=== PATIENT | female | born 1930 | race Caucasian/White ===

== ENCOUNTER 2016-09-23 11:38 | Emergency (ER) | payer MEDICARE, OTHER ==
[~2016-09-23] VITALS: Ht 165.1 cm; Wt 64.4 kg
[2016-09-23] MEDS ORDERED: SODIUM CHLORIDE 0.9% 1,000 ML IV ONE (12:41)
[2016-09-23] MEDS ORDERED: PLEASE ENTER ALLERGIES MC SCH ×2 (13:00)
[2016-09-23] MEDS ORDERED: SODIUM CHLORIDE FLUSH 10ML SYR IVF ONE (13:00)
[2016-09-23] MEDS ORDERED: ASPIRIN 81 MG TABLET CHEW PO ONE (13:00)
[2016-09-23 13:16] LABS: BLOOD UREA NITROGEN 20 mg/dL (7-18)
[2016-09-23 13:21] LABS: IS PT STATUS REG ER OR PRE ER? YES
[2016-09-23] MEDS ORDERED: ASPIRIN 81 MG TABLET CHEW ONE (15:19)
[2016-09-23 15:55] VITALS: BP 148/60
== END 2016-09-23 16:13 | disposition home or self-care (01) ==
LOC: ED 14:40
DX: R45.1 Restlessness and agitation (principal); F03.90 Unspecified dementia, unspecified severity, without behavioral disturbance, psychotic disturbance, mood disturbance, and anxiety
CPT/HCPCS: 36415; 71010; 80048; 81003; 82040; 84484; 85025; 93005; 96360; 99285; J7030

== ENCOUNTER 2016-10-14 15:54 | Emergency (ER) | payer OTHER ==
[~2016-10-14] VITALS: Ht 165.1 cm; Wt 64.6 kg
[2016-10-14 16:13] VITALS: BP 156/74
[2016-10-14] MEDS ORDERED: AMOXICILLIN/CLAV 875-125MG TABLET PO ONE (17:00)
== END 2016-10-14 17:25 | disposition home or self-care (01) ==
LOC: ED 17:19
DX: S81.851D Open bite, right lower leg, subsequent encounter (principal); W54.0XXD Bitten by dog, subsequent encounter; K21.9 Gastro-esophageal reflux disease without esophagitis; I10 Essential (primary) hypertension
CPT/HCPCS: 99283

== ENCOUNTER → 2016-10-24 | Outpatient (CLI) | payer OTHER | END | disposition home or self-care (01) | LOC: WOUND 13:12 | PROVIDERS: ATTEND Physician Assistant | DX: S81.851A Open bite, right lower leg, initial encounter (principal); K21.9 Gastro-esophageal reflux disease without esophagitis; E78.5 Hyperlipidemia, unspecified; E03.9 Hypothyroidism, unspecified; F03.90 Unspecified dementia, unspecified severity, without behavioral disturbance, psychotic disturbance, mood disturbance, and anxiety; Z86.73 Personal history of transient ischemic attack (TIA), and cerebral infarction without residual deficits; Z90.710 Acquired absence of both cervix and uterus; Y99.8 Other external cause status; Y92.89 Other specified places as the place of occurrence of the external cause; Y93.89 Activity, other specified; W54.0XXA Bitten by dog, initial encounter | CPT/HCPCS: 11042 ==

== ENCOUNTER → 2016-10-31 | Outpatient (CLI) | payer OTHER | END | disposition home or self-care (01) | LOC: WOUND 10:18 | PROVIDERS: ATTEND Physician Assistant | DX: S81.811D Laceration without foreign body, right lower leg, subsequent encounter (principal); I10 Essential (primary) hypertension; E03.9 Hypothyroidism, unspecified; E78.5 Hyperlipidemia, unspecified; F02.80 Dementia in other diseases classified elsewhere, unspecified severity, without behavioral disturbance, psychotic disturbance, mood disturbance, and anxiety; Z86.73 Personal history of transient ischemic attack (TIA), and cerebral infarction without residual deficits; K21.9 Gastro-esophageal reflux disease without esophagitis; Z90.710 Acquired absence of both cervix and uterus; W54.0XXD Bitten by dog, subsequent encounter; Y92.89 Other specified places as the place of occurrence of the external cause; Y99.8 Other external cause status | CPT/HCPCS: 97597 ==

== ENCOUNTER → 2016-11-07 | Outpatient (CLI) | payer OTHER | END | disposition home or self-care (01) | LOC: WOUND 10:20 | PROVIDERS: ATTEND Physician Assistant | DX: S81.811D Laceration without foreign body, right lower leg, subsequent encounter (principal); F02.80 Dementia in other diseases classified elsewhere, unspecified severity, without behavioral disturbance, psychotic disturbance, mood disturbance, and anxiety; E03.9 Hypothyroidism, unspecified; K21.9 Gastro-esophageal reflux disease without esophagitis; I10 Essential (primary) hypertension; Z90.710 Acquired absence of both cervix and uterus; E78.5 Hyperlipidemia, unspecified; Z86.73 Personal history of transient ischemic attack (TIA), and cerebral infarction without residual deficits; W54.0XXD Bitten by dog, subsequent encounter; Y92.89 Other specified places as the place of occurrence of the external cause; Y99.8 Other external cause status | CPT/HCPCS: G0463; WOU0463 ==

== ENCOUNTER 2018-07-29 10:36 | Observation (INO) | payer OTHER ==
[~2018-07-29] VITALS: Ht 165.1 cm; Wt 58.1 kg
--- NOTE | 2018-07-29 10:37 | NUR ---
PATIENT ARRIVES FROM HOME WIHT COMPLAINTS OF FAILURE TO THRIVE SINCE SHE WAS D/C FROM HOSPITAL RECENTLY. 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 PATIENT ARRIVES WITH [facility] REPORT, AND SHE IS NOT GOOD AT DETAILING HER HISTORY. APPRENTLY SHE TAKES KEFLEX FREQUENTLY FOR FREQUENT UTI.
[2018-07-29] MEDS ORDERED: SODIUM CHLORIDE FLUSH 10ML SYR IVF ONE (11:00)
--- NOTE | 2018-07-29 11:05 | NUR ---
PATIENTS SON FAN HERE SHEDDING LIGHT ON SITUATION. HE STATES SHE FELL OOB LAST THURSDAY AND WAS TAKEN TO [facility] ON THURSDAY - AND THEY D/C HER ON SOFT TISSUE INJURY. BUT BACK PAIN LOWER HAS BEEN INCREASINGLY WORSE EVER SINCE TO EXTENT SHE CAN BARELY WALK NOW ACCORDING TO SON. SON CAN'T GET HER OOB AND SHE ISN'T EATING, WHICH IS CONCERNING.
[2018-07-29 11:20] LABS: BASOPHILS # (AUTO) 0.02 x10^3/uL (0-0.1); BASOPHILS % (AUTO) 0 % (0-1); EOSINOPHILS # (AUTO) 0.06 x10^3/uL (0-0.4); EOSINOPHILS % (AUTO) 1 % (1-7); LYMPHOCYTES # (AUTO) 1.14 x10^3/uL (1-3.4); LYMPHOCYTES % (AUTO) 13 % (22-44); MD NO; MEAN CORPUSCULAR HEMOGLOBIN 28.9 pg (27.0-34.8); MEAN CORPUSCULAR HGB CONC 33.2 g/dL (32.4-35.8); MEAN CORPUSCULAR VOLUME 87.2 fL (80-100); MEAN PLATELET VOLUME 8.7 fL (7.4-10.4); MONOCYTES # (AUTO) 0.69 x10^3/uL (0.2-0.8); MONOCYTES % (AUTO) 8 % (2-9); NEUTROPHILS # (AUTO) 6.59 x10^3/uL (1.8-6.8); NEUTROPHILS % (AUTO) 78 % (42-75); PLATELET COUNT 428 x10^3/uL (130-400); RED BLOOD COUNT 4.64 x10^6/uL (3.82-5.3); RED CELL DISTRIBUTION WIDTH 14.6 % (9.6-15.2)
[2018-07-29 11:31] LABS: ALANINE AMINOTRANSFERASE 24 U/L (12-78); ALBUMIN 3.3 g/dL (3.4-5.0); ANION GAP 13 mmol/L (5-15); CALCIUM 9.2 mg/dL (8.5-10.1); CHLORIDE 102 mmol/L (98-107); CREATININE 0.76 mg/dL (0.55-1.02)
[2018-07-29 11:35] LABS: ALKALINE PHOSPHATASE 139 U/L (45-117); BILIRUBIN,TOTAL 0.6 mg/dL (0.2-1.0); TOTAL PROTEIN 7.1 g/dL (6.4-8.2); TROPONIN I < 0.015 ng/mL (0.000-0.045)
--- NOTE | 2018-07-29 11:38 | NUR ---
STRAIGHT CATH'D PATIENT AND GOT 15 ML DARK YELLOW URINE OUT. LABELED AND SENT TO LAB THE SMALL AMOUNT OBTAINED.
[2018-07-29 12:19] LABS: CULTURE INDICATED? YES; MICROSCOPIC INDICATED
--- NOTE | 2018-07-29 12:45 | NUR ---
PATIENT AWAITING ER WORKUP
--- NOTE | 2018-07-29 13:25 | NUR ---
PATIENT HAS ADMISSION ORDERS. SOCIAL SERIVCES MEETING WITH SON NOW. HE HAS STUGGLES CARING FOR HER. PATIENT IS IN RADIOLOGY FOR STUDIES.
--- NOTE | 2018-07-29 13:45 | NUR ---
REPORT GIVEN TO BECCA. KATERINA CHUNG
[2018-07-29 14:01] LABS: FREE T4 (FREE THYROXINE) 1.64 ng/dL (0.76-1.46); THYROID STIMULATING HORMONE 2.42 mIU/L (0.358-3.740)
[2018-07-29 14:11] VITALS: BP 148/69
[2018-07-29] MEDS ORDERED: POTASSIUM CHLORIDE 20 MEQ TAB.ER.PRT PO ONE (14:30)
[2018-07-29] MEDS ORDERED: OMEP40CA6 PO (14:50)
[2018-07-29] MEDS ORDERED: LISI5TAB7 PO (14:52)
[2018-07-29] MEDS ORDERED: SERT100T32 PO (14:52)
[2018-07-29] MEDS ORDERED: CEPH-375 PO (14:52)
[2018-07-29] MEDS ORDERED: LEVO100T5 PO (14:52)
[2018-07-29] MEDS ORDERED: GABAPENTIN 300 MG CAPSULE PO PRN (15:00)
[2018-07-29] MEDS ORDERED: ONDANSETRON 2MG/ML, 2ML IVPush PRN (15:00)
[2018-07-29] MEDS ORDERED: ENALAPRILAT 1.25 MG/ML, 2ML IVPush PRN (15:00)
[2018-07-29] MEDS ORDERED: MORPHINE SULFATE 4 MG/ML, 1ML IVPush PRN (15:00)
[2018-07-29] MEDS ORDERED: DOCUSATE 100 MG CAPSULE PO PRN (15:00)
[2018-07-29] MEDS ORDERED: ACETAMINOPHEN 325 MG TABLET PO PRN (15:00)
[2018-07-29] MEDS: METHOCARBAMOL 500 MG TABLET PO SCH ×2 (15:46→21:00)
[2018-07-29] MEDS: KETOROLAC 30 MG/1 ML IVPush SCH ×2 (16:02→22:24)
[2018-07-29] MEDS: NS + 20MEQ KCL 1,000 ML IV SCH (17:11)
[2018-07-29] MEDS: CEPHALEXIN 250 MG CAPSULE PO SCH (21:00)
[2018-07-29] MEDS: SERTRALINE 100MG TABLET PO SCH (21:00)
[2018-07-29] MEDS: ENOXAPARIN 40 MG/0.4 ML SQ SCH (22:24)
[2018-07-29] MEDS: LIDODERM 5% PATCH TD SCH (22:24)
[2018-07-30 00:06] VITALS: BP 132/71
[2018-07-30] MEDS: NS + 20MEQ KCL 1,000 ML IV SCH ×3 (04:20→20:55)
[2018-07-30] MEDS: KETOROLAC 30 MG/1 ML IVPush SCH (04:20)
[2018-07-30] MEDS: METHOCARBAMOL 500 MG TABLET PO SCH ×4 (05:30→20:55)
[2018-07-30 05:43] LABS: BASOPHILS # (AUTO) 0.02 x10^3/uL (0-0.1); BASOPHILS % (AUTO) 0 % (0-1); EOSINOPHILS # (AUTO) 0.08 x10^3/uL (0-0.4); EOSINOPHILS % (AUTO) 1 % (1-7); LYMPHOCYTES # (AUTO) 1.19 x10^3/uL (1-3.4); LYMPHOCYTES % (AUTO) 18 % (22-44); MD NO; MEAN CORPUSCULAR HEMOGLOBIN 29.6 pg (27.0-34.8); MEAN CORPUSCULAR HGB CONC 33.5 g/dL (32.4-35.8); MEAN CORPUSCULAR VOLUME 88.5 fL (80-100); MEAN PLATELET VOLUME 9.1 fL (7.4-10.4); MONOCYTES # (AUTO) 0.56 x10^3/uL (0.2-0.8); MONOCYTES % (AUTO) 8 % (2-9); NEUTROPHILS # (AUTO) 4.85 x10^3/uL (1.8-6.8); NEUTROPHILS % (AUTO) 72 % (42-75); PLATELET COUNT 419 x10^3/uL (130-400); RED BLOOD COUNT 4.35 x10^6/uL (3.82-5.3); RED CELL DISTRIBUTION WIDTH 14.2 % (9.6-15.2)
[2018-07-30 05:45] LABS: CHLORIDE 108 mmol/L (98-107)
[2018-07-30 05:50] LABS: ALANINE AMINOTRANSFERASE 28 U/L (12-78); ALKALINE PHOSPHATASE 131 U/L (45-117); ANION GAP 11 mmol/L (5-15); BILIRUBIN,TOTAL 0.8 mg/dL (0.2-1.0); CALCIUM 8.2 mg/dL (8.5-10.1); CREATININE 0.54 mg/dL (0.55-1.02); TOTAL PROTEIN 6.5 g/dL (6.4-8.2)
[2018-07-30] MEDS ORDERED: LEVOTHYROXINE 100 MCG TABLET PO SCH (06:00)
[2018-07-30] MEDS ORDERED: PANTOPRAZOLE 40 MG IV IVPush SCH (07:30)
[2018-07-30] MEDS: LEVOTHYROXINE 100 MCG INJ IVPush SCH (08:11)
[2018-07-30] MEDS: LISINOPRIL 5 MG TABLET PO SCH (08:11)
[2018-07-30 08:22] VITALS: BP 128/69
--- NOTE | 2018-07-30 10:05 | NUR ---
REC: Chopped diet with thin liquids; aspiration precautions Addendum: 07/30/18 at 1007 by Cesilia MANZO Amended: Links added.
[2018-07-30] MEDS ORDERED: POTASSIUM CHLORIDE 20 MEQ TAB.ER.PRT PO ONE (13:00)
[2018-07-30 14:14] VITALS: BP 155/67
[2018-07-30] MEDS ORDERED: ERGOCALCIFEROL 50,000 UNIT CAPSULE PO SCH (15:30)
[2018-07-30 19:36] VITALS: BP 159/67
[2018-07-30] MEDS: SERTRALINE 100MG TABLET PO SCH (20:55)
[2018-07-30] MEDS: ENOXAPARIN 40 MG/0.4 ML SQ SCH (20:55)
[2018-07-30] MEDS: LIDODERM 5% PATCH TD SCH (20:55)
[2018-07-30] MEDS: CEPHALEXIN 250 MG CAPSULE PO SCH (21:00)
[2018-07-31 00:02] VITALS: BP 154/64
[2018-07-31 05:36] LABS: BASOPHILS # (AUTO) 0.04 x10^3/uL (0-0.1); BASOPHILS % (AUTO) 1 % (0-1); EOSINOPHILS # (AUTO) 0.03 x10^3/uL (0-0.4); EOSINOPHILS % (AUTO) 0 % (1-7); LYMPHOCYTES # (AUTO) 1.07 x10^3/uL (1-3.4); LYMPHOCYTES % (AUTO) 14 % (22-44); MD NO; MEAN CORPUSCULAR HEMOGLOBIN 29.5 pg (27.0-34.8); MEAN CORPUSCULAR HGB CONC 33.8 g/dL (32.4-35.8); MEAN CORPUSCULAR VOLUME 87.3 fL (80-100); MEAN PLATELET VOLUME 9.2 fL (7.4-10.4); MONOCYTES # (AUTO) 0.66 x10^3/uL (0.2-0.8); MONOCYTES % (AUTO) 9 % (2-9); NEUTROPHILS # (AUTO) 5.96 x10^3/uL (1.8-6.8); NEUTROPHILS % (AUTO) 77 % (42-75); PLATELET COUNT 414 x10^3/uL (130-400); RED CELL DISTRIBUTION WIDTH 13.8 % (9.6-15.2)
[2018-07-31] MEDS: METHOCARBAMOL 500 MG TABLET PO SCH ×4 (05:36→21:49)
[2018-07-31] MEDS: PANTOPROZOLE 40MG TABLET PO SCH (05:36)
[2018-07-31 05:47] LABS: CHLORIDE 109 mmol/L (98-107)
[2018-07-31 05:51] LABS: ALANINE AMINOTRANSFERASE 29 U/L (12-78); ALBUMIN 3.1 g/dL (3.4-5.0); ALKALINE PHOSPHATASE 139 U/L (45-117); ANION GAP 10 mmol/L (5-15); BILIRUBIN,TOTAL 0.8 mg/dL (0.2-1.0); CALCIUM 8.3 mg/dL (8.5-10.1); CREATININE 0.56 mg/dL (0.55-1.02); TOTAL PROTEIN 6.7 g/dL (6.4-8.2)
[2018-07-31 07:38] VITALS: BP 146/64
[2018-07-31] MEDS: LEVOTHYROXINE 100 MCG INJ IVPush SCH (09:54)
[2018-07-31] MEDS: LISINOPRIL 5 MG TABLET PO SCH (09:54)
[2018-07-31] MEDS: NS + 20MEQ KCL 1,000 ML IV SCH (12:35)
[2018-07-31 13:07] VITALS: BP 134/71
[2018-07-31] MEDS: ENOXAPARIN 40 MG/0.4 ML SQ SCH (21:49)
[2018-07-31] MEDS: LIDODERM 5% PATCH TD SCH (21:49)
[2018-07-31] MEDS: CEPHALEXIN 250 MG CAPSULE PO SCH (21:49)
[2018-07-31] MEDS: SERTRALINE 100MG TABLET PO SCH (21:49)
[2018-08-01] MEDS: NS + 20MEQ KCL 1,000 ML IV SCH ×3 (02:22→16:17)
[2018-08-01 05:09] LABS: BASOPHILS # (AUTO) 0.02 x10^3/uL (0-0.1); BASOPHILS % (AUTO) 0 % (0-1); EOSINOPHILS # (AUTO) 0.09 x10^3/uL (0-0.4); EOSINOPHILS % (AUTO) 1 % (1-7); LYMPHOCYTES # (AUTO) 1.27 x10^3/uL (1-3.4); LYMPHOCYTES % (AUTO) 16 % (22-44); MD NO; MEAN CORPUSCULAR HEMOGLOBIN 29.2 pg (27.0-34.8); MEAN CORPUSCULAR HGB CONC 33.1 g/dL (32.4-35.8); MONOCYTES # (AUTO) 0.59 x10^3/uL (0.2-0.8); MONOCYTES % (AUTO) 8 % (2-9); NEUTROPHILS # (AUTO) 5.86 x10^3/uL (1.8-6.8); NEUTROPHILS % (AUTO) 75 % (42-75); PLATELET COUNT 438 x10^3/uL (130-400); RED BLOOD COUNT 4.47 x10^6/uL (3.82-5.3); RED CELL DISTRIBUTION WIDTH 14.3 % (9.6-15.2)
[2018-08-01 05:18] LABS: ANION GAP 11 mmol/L (5-15); CALCIUM 8.4 mg/dL (8.5-10.1); CHLORIDE 112 mmol/L (98-107); CREATININE 0.55 mg/dL (0.55-1.02)
[2018-08-01] MEDS: PANTOPROZOLE 40MG TABLET PO SCH ×2 (06:00→06:32)
[2018-08-01] MEDS: METHOCARBAMOL 500 MG TABLET PO SCH ×5 (06:32→21:45)
[2018-08-01 06:40] VITALS: BP 147/57
[2018-08-01] MEDS: LEVOTHYROXINE 100 MCG INJ IVPush SCH (08:24)
[2018-08-01] MEDS: LISINOPRIL 5 MG TABLET PO SCH (08:24)
[2018-08-01 12:50] VITALS: BP 147/57
[2018-08-01 19:04] VITALS: BP 154/71
[2018-08-01] MEDS: CEPHALEXIN 250 MG CAPSULE PO SCH ×2 (21:00→21:46)
[2018-08-01] MEDS: SERTRALINE 100MG TABLET PO SCH (21:45)
[2018-08-01] MEDS: ENOXAPARIN 40 MG/0.4 ML SQ SCH (21:46)
[2018-08-01] MEDS: LIDODERM 5% PATCH TD SCH (21:46)
[2018-08-02 01:20] VITALS: BP 149/70
[2018-08-02 04:53] LABS: BASOPHILS # (AUTO) 0.05 x10^3/uL (0-0.1); BASOPHILS % (AUTO) 1 % (0-1); EOSINOPHILS # (AUTO) 0.07 x10^3/uL (0-0.4); EOSINOPHILS % (AUTO) 1 % (1-7); LYMPHOCYTES # (AUTO) 1.21 x10^3/uL (1-3.4); LYMPHOCYTES % (AUTO) 14 % (22-44); MD NO; MEAN CORPUSCULAR HEMOGLOBIN 29.5 pg (27.0-34.8); MEAN CORPUSCULAR HGB CONC 33.7 g/dL (32.4-35.8); MEAN CORPUSCULAR VOLUME 87.5 fL (80-100); MEAN PLATELET VOLUME 8.7 fL (7.4-10.4); MONOCYTES # (AUTO) 0.57 x10^3/uL (0.2-0.8); MONOCYTES % (AUTO) 7 % (2-9); NEUTROPHILS # (AUTO) 6.84 x10^3/uL (1.8-6.8); NEUTROPHILS % (AUTO) 78 % (42-75); PLATELET COUNT 418 x10^3/uL (130-400); RED BLOOD COUNT 4.31 x10^6/uL (3.82-5.3); RED CELL DISTRIBUTION WIDTH 14.3 % (9.6-15.2)
[2018-08-02 05:04] LABS: ANION GAP 12 mmol/L (5-15); CALCIUM 8.1 mg/dL (8.5-10.1); CHLORIDE 106 mmol/L (98-107); CREATININE 0.49 mg/dL (0.55-1.02)
[2018-08-02] MEDS: NS + 20MEQ KCL 1,000 ML IV SCH ×2 (05:20→21:16)
[2018-08-02] MEDS: PANTOPROZOLE 40MG TABLET PO SCH (06:00)
[2018-08-02] MEDS: METHOCARBAMOL 500 MG TABLET PO SCH ×4 (06:00→21:17)
[2018-08-02 07:44] VITALS: BP 154/73
[2018-08-02] MEDS: LEVOTHYROXINE 100 MCG INJ IVPush SCH (07:47)
[2018-08-02] MEDS: LISINOPRIL 5 MG TABLET PO SCH (07:58)
[2018-08-02 13:26] VITALS: BP 167/73
[2018-08-02 20:07] VITALS: BP 161/76
[2018-08-02] MEDS: LIDODERM 5% PATCH TD SCH (21:16)
[2018-08-02] MEDS: ENOXAPARIN 40 MG/0.4 ML SQ SCH (21:16)
[2018-08-02] MEDS: CEPHALEXIN 250 MG CAPSULE PO SCH (21:17)
[2018-08-02] MEDS: SERTRALINE 100MG TABLET PO SCH (21:17)
[2018-08-03 00:24] VITALS: BP 151/78
[2018-08-03] MEDS: PANTOPROZOLE 40MG TABLET PO SCH (05:35)
[2018-08-03] MEDS: METHOCARBAMOL 500 MG TABLET PO SCH ×4 (05:35→20:04)
[2018-08-03 05:41] LABS: CHLORIDE 104 mmol/L (98-107)
[2018-08-03 05:55] LABS: ALANINE AMINOTRANSFERASE 43 U/L (12-78); ALKALINE PHOSPHATASE 174 U/L (45-117); ANION GAP 15 mmol/L (5-15); BILIRUBIN,TOTAL 1.3 mg/dL (0.2-1.0); CALCIUM 8.2 mg/dL (8.5-10.1); CREATININE 0.48 mg/dL (0.55-1.02); TOTAL PROTEIN 6.7 g/dL (6.4-8.2)
[2018-08-03 06:52] VITALS: BP 166/73
[2018-08-03] MEDS: LEVOTHYROXINE 100 MCG INJ IVPush SCH (07:20)
[2018-08-03] MEDS: LISINOPRIL 5 MG TABLET PO SCH (07:20)
[2018-08-03] MEDS: DOCUSATE 50 MG/5 ML, 10ML UDC PO PRN (07:31)
[2018-08-03] MEDS ORDERED: POTASSIUM CHLORIDE 20 MEQ TAB.ER.PRT PO ONE (11:30)
[2018-08-03] MEDS: NS + 20MEQ KCL 1,000 ML IV SCH (11:53)
[2018-08-03 12:47] VITALS: BP 110/68
[2018-08-03] MEDS ORDERED: POTASSIUM CHLORIDE 20 MEQ TAB.ER.PRT ONE (17:15)
[2018-08-03 18:58] VITALS: BP 156/75
[2018-08-03] MEDS: LIDODERM 5% PATCH TD SCH (20:03)
[2018-08-03] MEDS: SERTRALINE 100MG TABLET PO SCH (20:03)
[2018-08-03] MEDS: CEPHALEXIN 250 MG CAPSULE PO SCH (20:04)
[2018-08-03] MEDS: ENOXAPARIN 40 MG/0.4 ML SQ SCH (20:04)
[2018-08-04 01:04] VITALS: BP 128/70
[2018-08-04] MEDS: NS + 20MEQ KCL 1,000 ML IV SCH (01:44)
[2018-08-04 05:28] LABS: BASOPHILS # (AUTO) 0.03 x10^3/uL (0-0.1); BASOPHILS % (AUTO) 0 % (0-1); EOSINOPHILS # (AUTO) 0.15 x10^3/uL (0-0.4); EOSINOPHILS % (AUTO) 2 % (1-7); LYMPHOCYTES # (AUTO) 1.26 x10^3/uL (1-3.4); LYMPHOCYTES % (AUTO) 13 % (22-44); MD NO; MEAN CORPUSCULAR HEMOGLOBIN 29.4 pg (27.0-34.8); MEAN CORPUSCULAR VOLUME 86.7 fL (80-100); MEAN PLATELET VOLUME 8.6 fL (7.4-10.4); MONOCYTES # (AUTO) 0.62 x10^3/uL (0.2-0.8); MONOCYTES % (AUTO) 6 % (2-9); NEUTROPHILS # (AUTO) 7.61 x10^3/uL (1.8-6.8); NEUTROPHILS % (AUTO) 79 % (42-75); PLATELET COUNT 415 x10^3/uL (130-400); RED BLOOD COUNT 4.46 x10^6/uL (3.82-5.3); RED CELL DISTRIBUTION WIDTH 14.1 % (9.6-15.2)
[2018-08-04 05:36] LABS: ANION GAP 15 mmol/L (5-15); CALCIUM 8.1 mg/dL (8.5-10.1); CHLORIDE 105 mmol/L (98-107)
[2018-08-04 05:37] LABS: CREATININE 0.52 mg/dL (0.55-1.02)
[2018-08-04] MEDS: METHOCARBAMOL 500 MG TABLET PO SCH ×4 (06:00→21:00)
[2018-08-04 06:24] VITALS: BP 120/62
[2018-08-04] MEDS: PANTOPRAZOLE 40 MG IV IVPush SCH (06:28)
[2018-08-04] MEDS ORDERED: POTASSIUM CHLORIDE 40 MEQ in SODIUM CHLORIDE 0.9% 500 ML IV ONE (09:30)
[2018-08-04] MEDS: LEVOTHYROXINE 100 MCG INJ IVPush SCH (10:44)
[2018-08-04] MEDS: DOCUSATE 50 MG/5 ML, 10ML UDC PO PRN (10:44)
[2018-08-04] MEDS: LISINOPRIL 5 MG TABLET PO SCH (10:44)
[2018-08-04] MEDS ORDERED: BISACODYL 10 MG SUPP PR PRN (13:00)
[2018-08-04 15:51] VITALS: BP 118/62
[2018-08-04 18:56] VITALS: BP 149/65
[2018-08-04] MEDS: CEPHALEXIN 250 MG CAPSULE PO SCH (21:00)
[2018-08-04] MEDS: SERTRALINE 100MG TABLET PO SCH (21:00)
[2018-08-04] MEDS: LIDODERM 5% PATCH TD SCH (21:06)
[2018-08-04] MEDS: ENOXAPARIN 40 MG/0.4 ML SQ SCH (21:07)
[2018-08-05 02:02] VITALS: BP 126/70
[2018-08-05 05:16] LABS: ANION GAP 14 mmol/L (5-15); CALCIUM 8.4 mg/dL (8.5-10.1); CHLORIDE 105 mmol/L (98-107)
[2018-08-05 05:17] LABS: CREATININE 0.45 mg/dL (0.55-1.02)
[2018-08-05] MEDS: METHOCARBAMOL 500 MG TABLET PO SCH ×2 (06:00→11:00)
[2018-08-05] MEDS: PANTOPRAZOLE 40 MG IV IVPush SCH (06:25)
[2018-08-05] MEDS ORDERED: POTASSIUM CHLORIDE 40 MEQ in SODIUM CHLORIDE 0.9% 500 ML IV ONE (07:30)
[2018-08-05] MEDS: LISINOPRIL 5 MG TABLET PO SCH (09:00)
[2018-08-05] MEDS ORDERED: MAGNESIUM SULFATE PMX 2GM/50ML 50 ML IV ONE (10:00)
[2018-08-05 10:14] VITALS: BP 170/75
[2018-08-05] MEDS: LEVOTHYROXINE 100 MCG INJ IVPush SCH (11:32)
[2018-08-05 14:00] VITALS: BP 157/77
[2018-08-05 15:23] VITALS: BP 126/70
== END 2018-08-05 16:22 | disposition hospice, home (50) ==
LOC: ED 13:13 → INTOOBSV 13:15 → EDIP 13:15 → 3NE 14:05
PROVIDERS: ADMIT Hospitalist; ATTEND Hospitalist
DX: M51.16 Intervertebral disc disorders with radiculopathy, lumbar region (principal); E03.9 Hypothyroidism, unspecified; E55.9 Vitamin D deficiency, unspecified; E86.0 Dehydration; E87.6 Hypokalemia; F02.80 Dementia in other diseases classified elsewhere, unspecified severity, without behavioral disturbance, psychotic disturbance, mood disturbance, and anxiety; G30.1 Alzheimer's disease with late onset; I10 Essential (primary) hypertension; K21.9 Gastro-esophageal reflux disease without esophagitis; K59.09 Other constipation; M85.80 Other specified disorders of bone density and structure, unspecified site; W06.XXXA Fall from bed, initial encounter; Z51.5 Encounter for palliative care; Z66 Do not resuscitate; Z82.0 Family history of epilepsy and other diseases of the nervous system; Z87.440 Personal history of urinary (tract) infections; Z96.649 Presence of unspecified artificial hip joint; R29.6 Repeated falls
CPT/HCPCS: 36415; 70450; 70553; 71045; 72190; 76700; 80048; 80053; 81001; 82306; 83605; 83735; 84100; 84439; 84443; 84484; 85025; 87086; 87106; 92610; 93005; 96365; 96366; 96367; 96372; 96375; 96376; 97163; 97166; 99284; C9113; G0378; J1650; J1885; J3475; J3480; J7040